=== PATIENT | female | born 1990 | race Native Hawaiian/Other Pacific Islander ===

== ENCOUNTER 2017-09-17 15:39 | Emergency (ER) | payer OTHER ==
--- NOTE | 2017-09-17 16:28 | ED PDOC ---
HPI: Chest Pain Time Seen by Provider: 09/17/17 15:48 Chief Complaint (Nursing): Chest Pain Chief Complaint (Provider): Body pain, chest heaviness, headache, feverish History Per: Patient History/Exam Limitations: no limitations Onset/Duration Of Symptoms: Days (1) Context: Food (Pt reports eating undercooked seafood. Friend also ate it and is not sick) Quality: Dull, Pressure Associated Symptoms: denies: Nausea, Dyspnea, Diaphoresis, Syncope Modifying Factors: None Exacerbating Factors: None Additional Complaint(s): Pt states she feels like she has to breath deep to feel like she is breathing normal. Pt took ibuprofen today Past Medical History Reviewed: Historical Data, Nursing Documentation, Vital Signs Vital Signs: Last Vital Signs Temp 98.4 F 09/17/17 15:45 Pulse 110 H 09/17/17 15:45 Resp 20 09/17/17 15:45 BP Pulse Ox 98 09/17/17 19:58 - Medical History PMH: No Chronic Diseases - Surgical History Surgical History: No Surg Hx - Family History Family History: States: No Known Family Hx - Allergies Allergies/Adverse Reactions: Allergies Allergy/AdvReac Type Severity Reaction Status Date / Time No Known Allergies Allergy Verified 05/27/15 20:57 Review of Systems ROS Statement: Except As Marked, All Systems Reviewed And Found Negative Constitutional: Positive for: Fever. Negative for: Chills Physical Exam - Reviewed Nursing Documentation Reviewed: Yes Vital Signs Reviewed: Yes - Physical Exam Appears: Positive for: Well, Non-toxic, No Acute Distress Head Exam: Positive for: ATRAUMATIC, NORMAL INSPECTION, NORMOCEPHALIC Skin: Positive for: Normal Color, Warm, DRY Eye Exam: Positive for: Normal appearance ENT: Positive for: Normal ENT Inspection Neck: Positive for: Normal, Painless ROM Cardiovascular/Chest: Positive for: Regular Rate, Rhythm Respiratory: Positive for: Normal Breath Sounds. Negative for: Accessory Muscle Use, Wheezing, Respiratory Distress Back: Positive for: Normal Inspection Extremity: Positive for: Normal ROM Neurologic/Psych: Positive for: Alert, Oriented - Laboratory Results Result Diagrams: 09/17/17 16:50 09/17/17 16:50 - ECG O2 Sat by Pulse Oximetry: 98 Medical Decision Making Medical Decision Making: Pt initially declined CT but I was unaware. Discussed chest CT, PE, elevated DD and tachycardia with patient. PT state she would now do the study. Endorsed pending CT chest. Disposition - Clinical Impression Clinical Impression: Chest pain - Patient ED Disposition Is Patient to be Admitted: Transfer of Care - Disposition Disposition: Transfer of Care Disposition Time: 19:58 Condition: GOOD Instructions: Chest Pain Forms: [facility] ([place])
--- NOTE | 2017-09-17 16:51 | RAD ---
HISTORY: Chest pain. COMPARISON: No prior. TECHNIQUE: Chest PA and lateral FINDINGS: LUNGS: No active pulmonary disease. PLEURA: No significant pleural effusion identified. No pneumothorax apparent. CARDIOVASCULAR: Normal. OSSEOUS STRUCTURES: No significant abnormalities. VISUALIZED UPPER ABDOMEN: Normal. OTHER FINDINGS: None. IMPRESSION: No active disease.
[2017-09-17 17:12] LABS: SQUAMOUS EPITHIAL 1 /hpf (0-5); URINE BACTERIA RARE (<OCC); URINE BILIRUBIN NEGATIVE (NEGATIVE); URINE BLOOD NEGATIVE (NEGATIVE); URINE CLARITY SLIGHTY-CLOUDY (Clear); URINE COLOR STRAW (YELLOW); URINE GLUCOSE (UA) NEG (Normal); URINE LEUKOCYTE ESTERASE SMALL Leu/uL (Negative); URINE PROTEIN NEGATIVE (NEGATIVE); URINE UROBILINOGEN 0.2-1.0 mg/dL (0.2-1.0)
[2017-09-17 17:17] LABS: BASO % 0.5 % (0.0-2.0); EOS % 0.5 % (0.0-4.0); HEMOGLOBIN 13.8 g/dL (12.0-16.0); LYMPH # 0.5 K/uL (1.0-4.3); LYMPH % 12.8 % (20.0-40.0); MEAN CORPUSCULAR HEMOGLOBIN 29.7 pg (27.0-31.0); MEAN CORPUSCULAR HGB CONC 32.6 g/dL (33.0-37.0); MEAN PLATELET VOLUME 7.6 fl (7.2-11.7); MONO # 0.2 K/uL (0.0-0.8); MONO % 4.9 % (0.0-10.0); NEUT # 3.4 K/uL (1.8-7.0); NEUT % 81.3 % (50.0-75.0); NRBC % 0.1 % (0.0-0.0); RBC 4.64 Mil/uL (3.80-5.20); RED CELL DISTRIBUTION WIDTH 12.9 % (11.5-14.5); WHITE BLOOD COUNT 4.2 K/uL (4.8-10.8)
[2017-09-17 17:25] LABS: ALBUMIN 3.9 g/dL (3.5-5.0); ALT/SGPT 46 U/L (9-52); AST/SGOT 28 U/L (14-36); BLOOD UREA NITROGEN 13 mg/dl (7-17); CALCIUM 8.6 mg/dL (8.4-10.2); GFR AFRICAN-AMERICAN > 60; GFR NON-AFRICAN AMERICAN > 60
[2017-09-17] MEDS ORDERED: Sodium Chloride 0.9% 0 ML ONE (18:51)
[2017-09-17] MEDS ORDERED: Iodixanol 320 MG/ML 100 ML BOTTLE IV ONE ×2 (18:51→20:14)
--- NOTE | 2017-09-17 21:08 | CT ---
EXAM: CT Angiography Chest With Intravenous Contrast CLINICAL HISTORY: 27 years old, female; Signs and symptoms; Shortness of breath; Additional info: SOB, tachycardia TECHNIQUE: Axial computed tomographic angiography images of the chest with intravenous contrast using pulmonary embolism protocol. All CT scans at this facility use one or more dose reduction techniques, viz.: automated exposure control; ma/kV adjustment per patient size (including targeted exams where dose is matched to indication; i.e. head); or iterative reconstruction technique. MIP reconstructed images were created and reviewed. Coronal and sagittal reformatted images were created and reviewed. CONTRAST: 80 mL of Visipaque administered intravenously. COMPARISON: No relevant prior studies available. FINDINGS: Limitations: Suboptimal timing of bolus. Pulmonary arteries: No definite pulmonary embolism. Aorta: No aneurysm. No dissection. Lungs: No consolidation. Pleural space: No significant effusion. No pneumothorax. Heart: No cardiomegaly. No significant pericardial effusion. Bones/joints: No acute fracture. Soft tissues: Unremarkable. Lymph nodes: No pathologically enlarged lymph nodes. IMPRESSION: 1. No definite CT evidence of pulmonary embolism.
--- NOTE | 2017-09-17 21:22 | ED PDOC ---
- Laboratory Results Result Diagrams: 09/17/17 16:50 09/17/17 16:50 - ECG O2 Sat by Pulse Oximetry: 98 - Progress ED Course And Treament: Case endorsed to business writer from Federico GOMEZ pending CTA chest EXAM: CT Angiography Chest With Intravenous Contrast CLINICAL HISTORY: 27 years old, female; Signs and symptoms; Shortness of breath; Additional info: SOB, tachycardia TECHNIQUE: Axial computed tomographic angiography images of the chest with intravenous contrast using pulmonary embolism protocol. All CT scans at this facility use one or more dose reduction techniques, viz.: automated exposure control; ma/kV adjustment per patient size (including targeted exams where dose is matched to indication; i.e. head); or iterative reconstruction technique. MIP reconstructed images were created and reviewed. Coronal and sagittal reformatted images were created and reviewed. CONTRAST: 80 mL of Visipaque administered intravenously. COMPARISON: No relevant prior studies available. FINDINGS: Limitations: Suboptimal timing of bolus. Pulmonary arteries: No definite pulmonary embolism. Aorta: No aneurysm. No dissection. Lungs: No consolidation. Pleural space: No significant effusion. No pneumothorax. Heart: No cardiomegaly. No significant pericardial effusion. Bones/joints: No acute fracture. Soft tissues: Unremarkable. Lymph nodes: No pathologically enlarged lymph nodes. IMPRESSION: 1. No definite CT evidence of pulmonary embolism. Disposition - Clinical Impression Clinical Impression: Atypical chest pain - POA Present On Arrival: None - Disposition Disposition: Routine/Home Disposition Time: 22:22 Condition: GOOD Instructions: Chest Pain That Is Not Caused by the Heart (DC) Forms: [employer] ([place])
[2017-09-17 22:09] VITALS: BP 105/63; PULSE 99; RESP 18; TEMP 99.9
[2017-09-17 22:23] VITALS: O2SAT 98
--- NOTE | 2017-09-18 07:33 | CARD ---
APPROVED REPORT EKG Measurement Heart [id number] <Conclusion> Normal sinus rhythm Normal ECG
== END 2017-09-17 22:41 | disposition home or self-care (01) ==
LOC: H.ER 15:39
DX: R07.89 Other chest pain (principal)
CPT/HCPCS: 71046; 71275; 80053; 81003; 81025; 84484; 85025; 85378; 87086; 87804; 93005; 99284; Q9967